=== PATIENT | male | born 1985 | race Caucasian/White ===

== ENCOUNTER 2024-06-09 17:01 | Emergency (ER) | payer SELFPAY ==
[2024-06-09] MEDS ORDERED: Ibuprofen 800 MG TAB ONE (17:44)
== END 2024-06-09 18:00 | disposition short-term general hospital (02) ==
LOC: BURERS 17:01
DX: N50.89 Other specified disorders of the male genital organs (principal)
CPT/HCPCS: 99284

== ENCOUNTER 2025-03-21 12:39 | Emergency (ER) | payer SELFPAY | END 2025-03-21 13:27 | disposition home or self-care (01) | LOC: BURERS 12:39 | DX: N45.2 Orchitis (principal); N50.811 Right testicular pain; F17.210 Nicotine dependence, cigarettes, uncomplicated | CPT/HCPCS: 99283 ==